=== PATIENT | male | born 1940 | race Caucasian/White ===

== ENCOUNTER 2017-01-21 13:20 | Emergency (ER) | payer OTHER ==
[~2017-01-21] VITALS: Ht 170.2 cm; Wt 55.0 kg
[~2017-01-21 13:20] MED LIST: ASPI81TA28 PEG; ATOR-54 PEG; CARV6.252 PEG; CNT PEG; DFLUDL100 PEG; DVN80 PEG; FSLL PEG; GLIP5TAB3 PO; LANS30TA3 PEG; NTRGSL/4 UT; NUTR-7 PO; OFLO0.3D4 OT; OXYC-57 PO; PANT40TA PO; POTA20TA16 PO; POTTAB2 PEG; SENN-65 PO; THM50 PEG; TICA1TAB PEG; VITBC PEG
[2017-01-21 13:28] VITALS: TEMP 36.9; Ht 170.2 cm; Wt 55.0 kg
--- NOTE | 2017-01-21 13:56 | EMERGENCY ROOM VISIT NOTE ---
History Report prepared by Scribe: Stefanie Tobar Under the Supervision of: Dr. Billy Steele D.O. First contact with patient: 13:44 Chief Complaint: FEEDING TUBE PROBLEM Stated Complaint: NEEDS TO HAVE FEEDING TUBE REMOVED-PROBLEMS History of Present Illness The patient is a 76 year old male who presents to the Emergency Room with complaints of pain around his feeding tube. He is accompanied by his and daughter. He reports he has been eating normally for the past 4 months and has developed pain around his feeding tube, which he rates as a 6/10. Touching the site worsens his discomfort. The feeding tube was placed here at [facility] by Dr. Mann after the patient had a short stay at [facility] in [place]. He denies any other complaints at today's visit. Source of History: patient, family Onset: DIETETIC AIDE Position: abdomen Symptom Intensity: 6/10 Timing: other (persistent) Modifying Factors (Worsening): other (palpation) Review of Systems See HPI for pertinent positives & negatives. A total of 10 systems reviewed and were otherwise negative. Past Medical & Surgical Medical Problems: (1) Abnormal EKG (2) CAD (coronary artery disease) (3) DM type 2 (diabetes mellitus, type 2) (4) Dyslipidemia (5) GERD (gastroesophageal reflux disease) (6) HTN (hypertension) (7) Multinodular thyroid (8) Nasopharyngeal mass (9) Possible GI bleed (10) Pulmonary nodules Surgical Problems: (1) H/O esophagogastroduodenoscopy (2) H/O Spinal surgery (3) S/P CABG x 4 (4) S/P triple vessel bypass (5) Stented coronary artery Family History Patient reports no known family medical history. Social History Smoking Status: Current Every Day Smoker Alcohol Use: none Drug Use: none Marital Status: Housing Status: lives with significant other Occupation Status: retired Current/Historical Medications Scheduled Aspirin (Aspirin Ec), 81 MG PEG QAM Atorvastatin (Lipitor), 20 MG PEG QAM Carvedilol (Coreg), 6.25 MG PEG BID Ciprofloxacin Tab (Cipro), 500 MG PO BID Clopidogrel (Plavix), 75 MG PO DAILY Diazepam (Valium), 5 MG PO HS Glipizide (Glucotrol), 5 MG PO BID Multivitamins/Minerals (Certavite/Antioxidants), 1 TAB PEG QAM Omeprazole (Prilosec), 10 MG PO HS Ranitidine (Zantac), 150 MG PO DAILY Scheduled PRN Nitroglycerin (Nitrostat), 0.4 MG UT PRN PRN for Chest Pain Oxycodone/Acetaminophen 5MG/325MG (Percocet 5MG/325MG), 1-2 TABLETS PO Q6H PRN for Pain Allergies Coded Allergies: Amoxicillin (Verified Adverse Reaction, Unknown, GI SYMPTOMS, 01/21/17) Clavulanic Acid (Verified Adverse Reaction, Unknown, GI SYMPTOMS, 01/21/17) Physical Exam Vital Signs Date Time Temp Pulse Resp B/P Pulse Ox O2 Delivery O2 Flow Rate FiO2 01/21/17 15:15 72 16 156/82 98 01/21/17 13:28 36.9 69 18 156/78 95 Room Air Physical Exam GENERAL: Patient is elderly and frail appearing. He does not appear to be in pain or distress. EYES: The conjunctivae are clear. The pupils are round and reactive. EARS, NOSE, MOUTH AND THROAT: The nose is without any evidence of any deformity. Mucous membranes are moist tongue is midline NECK: The neck is nontender and supple. RESPIRATORY: Normal respiratory effort is noted there is no evidence of wheezing rhonchi or rales CARDIOVASCULAR: Regular rate and rhythm noted there no murmurs rubs or gallops normal S1 normal S2 GASTROINTESTINAL: The abdomen is soft, non-distended. Feeding tube site is noted in RUQ. There is no erythema or drainage noted. MUSCULOSKELETAL/EXTREMITIES: There is no evidence of gross deformity full range of motion is noted in the hips and shoulders SKIN: There is no obvious evidence of any rash. There are no petechiae, pallor or cyanosis noted. NEUROLOGIC: Patient is awake alert and oriented x3 strength is symmetric patellar reflexes are 2+ bilaterally Medical Decision & Procedures ED Course 1350: The patient was evaluated in room B4. A complete history and physical examination were performed. 1356: I discussed the patients case with FRANCOISE Hammer Dextrine Mixer. They will follow up with the patient in the office. Medical Decision Nursing notes reviewed. The patient is a 76-year-old male who presented to the emergency department for an evaluation of his feeding tube. The patient had problems swallowing in the past. He no longer uses the feeding tube and his family members brought him to the emergency department today for possible removal of the feeding tube. I discussed the patient's case with the on-call fountain vending mechanic. They evaluated the patient in the emergency department for the feeding tube. They will follow the patient up an outpatient to evaluate whether or not the feeding tube to be removed. Certainly the patient does have some chronic underlying medical conditions and also is still very frail and cachectic appearing. It is possible he may need this feeding tube in the future but he is very sure that he wants removed as soon as possible. They were encouraged to return to the emergency apartment immediately if symptoms worsen or if need arises otherwise air encouraged to follow-up with the fountain vending mechanic as scheduled. Consults Time Called: [id number] Consulting Physician: FRANCOISE Hammer [facility] Dextrine Mixer Returned Call: [phone] I discussed the patients case with FRANCOISE Hammer Dextrine Mixer. They will follow up with the patient in the office. Impression Primary Impression: Complication of feeding tube Scribe Attestation The scribe's documentation has been prepared under my direction and personally reviewed by me in its entirety. I confirm that the note above accurately reflects all work, treatment, procedures, and medical decision making performed by me. Departure Information Dispostion Home / Self-Care Referrals Julius Marcelino (PCP) Patient Instructions Feeding Tube PEG, My [facility] Additional Instructions Call to schedule a follow-up appointment with the fountain vending mechanic.
[2017-01-21] MEDS ORDERED: ZNTT/150 PO (14:00)
[2017-01-21] MEDS ORDERED: CIPR1TAB11 PO (14:00)
[2017-01-21] MEDS ORDERED: OMEP10CA4 PO (14:00)
[2017-01-21] MEDS ORDERED: DIAZ-165 PO (14:00)
[2017-01-21] MEDS ORDERED: CLOP1TAB15 PO (14:00)
[2017-01-21 15:15] VITALS: BP 156/82; PULSE 72; O2SAT 98
== END 2017-01-21 16:01 | disposition home or self-care (01) ==
LOC: C.EDB 13:23
DX: K94.29 Other complications of gastrostomy (principal); I10 Essential (primary) hypertension; E11.9 Type 2 diabetes mellitus without complications; F17.210 Nicotine dependence, cigarettes, uncomplicated; Z95.1 Presence of aortocoronary bypass graft; I25.10 Atherosclerotic heart disease of native coronary artery without angina pectoris; Z79.899 Other long term (current) drug therapy

== ENCOUNTER 2019-09-01 17:33 | Inpatient (IN) ==
[~2019-09-01 17:33] MED LIST changes: -ASPI81TA28 PEG; -ATOR-54 PEG; -CARV6.252 PEG; -CNT PEG; -DFLUDL100 PEG; -DVN80 PEG; -FSLL PEG; -GLIP5TAB3 PO; -LANS30TA3 PEG; -NTRGSL/4 UT; -NUTR-7 PO; -OFLO0.3D4 OT; -OXYC-57 PO; -PANT40TA PO; -POTA20TA16 PO; -POTTAB2 PEG; -SENN-65 PO; +SODIUM CHLORIDE 0.9% 1000ML 1,000 ML IV SCH; -THM50 PEG; -TICA1TAB PEG; -VITBC PEG
[2019-09-01] MEDS ORDERED: OPTIRAY 320 125ml IV PRN (17:36)
[2019-09-01 18:06] LABS: Basophils # (auto) 0.03 K/uL (0-0.2); Basophils % (auto) 0.5 %; Eosinophils # (auto) 0.31 K/uL (0-0.5); Eosinophils % (auto) 4.9 %; Hematocrit (blood only) 38.2 % (42-52); Hemoglobin 12.8 g/dL (14.0-18.0); Immature Granulocytes # (auto) 0.01 K/uL (0.00-0.02); Immature Granulocytes % (auto) 0.2 %; Lymphocytes # (auto) 2.11 K/uL (1.2-3.4); Lymphocytes % (auto) 33.6 %; Mean Corpuscular Hgb Conc 33.5 g/dL (32-36); Mean Corpuscular Volume 89.5 fL (80-100); Mean Platelet Volume 9.6 fL (7.4-10.4); Monocytes # (auto) 0.55 K/uL (0.11-0.59); Monocytes % (auto) 8.8 %; Neutrophils # (auto) 3.27 K/uL (1.4-6.5); Platelet Count 230 K/uL (130-400); RDW Coefficient of Variation 13.7 % (11.5-14.5); RDW Standard Deviation 44.9 fL (36.4-46.3); Red Blood Count 4.27 M/uL (4.7-6.1); White Blood Count 6.28 K/uL (4.8-10.8)
[2019-09-01 18:10] LABS: Alanine Aminotransferase 22 U/L (12-78); Albumin Level 3.5 gm/dl (3.4-5.0); Aspartate Aminotransferase 15 U/L (15-37); BUN Creatinine Ratio 15.4 (10-20); Blood Urea Nitrogen 12 mg/dl (7-18); Calcium 9.3 mg/dl (8.5-10.1); Carbon Dioxide 27 mmol/L (21-32); Chloride 102 mmol/L (98-107); Est GFR (African American) 99.2; Est GFR (Non-African American) 85.6; Glucose 160 mg/dl (70-99); Magnesium 1.9 mg/dl (1.8-2.4); Sodium 136 mmol/L (136-145)
--- NOTE | 2019-09-01 18:11 | CT Scan Report ---
CT OF THE HEAD WITHOUT CONTRAST CLINICAL HISTORY: Stroke evaluation. COMPARISON STUDY: Head CT April 01, 2016. MRI of the brain May 06, 2016. TECHNIQUE: Helical axial images of the head were obtained without IV contrast. Automated exposure con trol was utilized for the study. A dose lowering technique was utilized adhering to the principles o f ALARA. FINDINGS: No acute intracranial hemorrhage, midline shift or mass effect is present. The ventricular system is unremarkable. The basilar cisterns are patent. No extra-axial collections are present. Ther e are no findings to suggest acute dural sinus thrombosis or acute territorial infarct. No significan t calvarial abnormalities are present. There is mild ethmoid sinus mucosal thickening. Small old infa rct within the right frontal lobe is noted. White matter hypodensity suggests small vessel disease. IMPRESSION: 1. No acute intracranial findings. 2. Small old right frontal lobe infarct and moderate small vessel disease. Electronically signed by: Constantine Reese M.D. 09/01/2019 6:10 PM
[2019-09-01 18:15] LABS: Albumin Globulin Ratio 1.2 (0.9-2); Alkaline Phosphatase 71 U/L (45-117); Bilirubin,Total 0.4 mg/dl (0.2-1); Total Protein 6.5 gm/dl (6.4-8.2); Troponin I < 0.015 ng/ml (0-0.045)
--- NOTE | 2019-09-01 18:17 | CT Scan Report ---
HEAD & NECK CTA HISTORY: weakness TECHNIQUE: Multiaxial CT images of the head were performed following the intravenous administration o f contrast to evaluate the major cerebral vessels. Multiaxial CT images of the neck were also perform ed following the intravenous administration of contrast to evaluate the major cervical vessels. Maxim um intensity projection images were also obtained. A dose lowering technique was utilized adhering to the principles of ALARA. COMPARISON: None. FINDINGS: There is no mass, hematoma, midline shift, or acute infarct. Mild multifocal narrowing within the trisha ateral carotid siphons due to the calcified plaque. The distal vertebral arteries and basilar artery are patent. No significant stenosis, occlusion, aneurysm within the bilateral ACAs, MCAs, diesel powerplant mechanic helper. High-grade stenosis of approximately 90% within the proximal left subclavian artery. This likely acc ounts for the diminished perfusion throughout the left vertebral artery. There is moderate to severe stenosis at the origin of the left vertebral artery. Mild multifocal narrowing within the left verteb ral artery due to the calcified plaque. Mild focal narrowing within the right vertebral artery at the C7 level due to the atherosclerotic plaque. Mild narrowing of approximately 20% at the origin of the innominate artery. There is mild multifocal narrowing within the bilateral mid subclavian arteries. Mild narrowing within the bilateral mid to distal common carotid arteries due to the calcified and no ncalcified atherosclerotic plaque. Moderate left and mild right carotid bifurcation calcification. No significant stenosis or occlusion within the right internal carotid artery. There is mild stenosis o f approximately 40% at the proximal left internal carotid artery. Biapical patchy densities favor sca rring. A 3 mm subpleural nodule within the right lower lobe on image 1. No pneumothorax. 4 mm nodule within the left lung apex on image 74. There is also a 3 mm nodule within the left lung apex on image 74. Multiple subcentimeter thyroid nodules. There is also a dominant 1.3 cm nodule within the left t hyroid lobe. Poststernotomy changes. Degenerative changes within the cervical spine. IMPRESSION: 1. No significant stenosis, occlusion, or aneurysm within the [place]. 2. Overall, diminished perfusion within the left vertebral artery in comparison to the right. This is likely due to the high-grade stenosis at the proximal left subclavian artery as well as at the moder ate to severe stenosis at the origin of the left vertebral artery. 3. Mild multifocal narrowing within the carotid and vertebral arteries as described above. No arteria l occlusion or dissection identified. Electronically signed by: Hietsh Nathan M.D. 09/01/2019 6:15 PM
--- NOTE | 2019-09-01 18:29 | XRay Report ---
XR chest 1V portable CLINICAL HISTORY: weakness COMPARISON STUDY: Chest And chest CT April 01, 2016. FINDINGS: Lung volumes are mildly diminished. There are median sternotomy wires and mediastinal surgi bhaskar clips. There is borderline cardiomegaly. There is no evidence for pulmonary edema. No pneumothora x or pleural effusion is noted. Minimal left basilar opacity is present. IMPRESSION: Left basilar opacity which favors atelectasis. An infectious process is considered less likely but could appear similar. Electronically signed by: Constantine Reese M.D. 09/01/2019 6:27 PM
[2019-09-01 18:44] LABS: INR 1.1 (0.9-1.1); Partial Thromboplastin Ratio 1.4; Partial Thromboplastin Time 37.4 Seconds (21.0-31.0); Prothrombin Time 10.9 Seconds (9.0-12.0)
--- NOTE | 2019-09-01 19:43 | History & Physical Report ---
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 Pt with hx CVA in past with left sided weakness however reports resolution. 2 days ago started with slurred speech. Yesterday with left arm weakness, Today increased left arm weakness and numbness with associated left leg weakness. Also with dizziness and blurry vision. Reports chronic SHAH and denies increased SHAH. In ER P: 75, R: 18, BP: 179/103 down to 139/73, 96% on RA CT HEAD: No acute intracranial findings. Small old right frontal lobe infarct and moderate small vessel disease. CTA HEAD & CTA NECK: 1. No significant stenosis, occlusion, or aneurysm within the [place]. 2. Overall, diminished perfusion within the left vertebral artery in comparison to the right. This is likely due to the high-grade stenosis at the proximal left subclavian artery as well as at the moderate to severe stenosis at the origin of the left vertebral artery. 3. Mild multifocal narrowing within the carotid and vertebral arteries as described above. No arterial occlusion or dissection identified. DDX: Stroke, TIA -Tele to monitor for arrhythmias -Lipids, A1C, TSH in am -MRI brain -Echo with bubble study -Aspiration precautions -Speech eval -PT/OT consult -Continue statin, aspirin -Will add Plavix -Neurology consult -May need to consider vascular consult (2) CAD (coronary artery disease): S/P CABG, Stents No CP -Continue aspirin, carvedilol, statin (3) HTN (hypertension): Monitor -Continue carvedilol (4) DM type 2 (diabetes mellitus, type 2): Not on medications currently -A1c in am -Novolog correction scale -Monitor BSGs (5) Dysphagia: H/O Chronic dysphagia. On pureed diet -Aspiration precautions -Speech eval (6) Dyslipidemia: -Continue statin (7) GERD (gastroesophageal reflux disease): -Continue PPI, H2 edwin (8) Multinodular thyroid: -Obtain TSH (9) Tobacco use: -Smoking cessation encouraged DVT Prophylaxis -Lovenox SQ Full Code as per discussion with pt, however reports would not want prolonged life support if poor prognosis Follows with Iman Carrasco PA-C with [facility] in [place] for routine care Pt was seen and care coordinated with Dr Rahman. See addendum. 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 Pt with hx CVA in past with left sided weakness however reports that resolved shortly after stroke. Reports 2 days ago started with slurring speech however noticed worsening slurred speech yesterday. States yesterday with some left arm weakness however this morning with increased left sided weakness. Reports left arm and hand weakness and numbness sensation. Had difficulty walking today and thinks that had some left leg weakness as well. C/O dizziness today described as spinning and feeling off balance. Noted blurry vision that he reports has improved since ER arrival. Pt with chronic SHAH, worse at night. Denies any increased SHAH. Reports chronic nasal/sinus congestion and uses Flonase and Claritin. Denies any increased nasal congestion or facial pain, fever/chills, cough. reports chronic dysphagia and eats pureed diet. Denies recent choking. Reports chronic nocturia. Denies falls, diaphoresis, N/V/D/C, syncope, neck pain, CP, SOB, orthopnea, palpitations, cough, sore throat, otalgia, rhinorrhea, abdominal pain, extremity edema, rashes, dysuria, hematuria. Allergies Allergy/AdvReac Type Severity Reaction Status Date / Time amoxicillin AdvReac Unknown GI SYMPTOMS Verified 09/01/19 19:10 clavulanic acid AdvReac Unknown GI SYMPTOMS Verified 09/01/19 19:10 Home Medications Home Medications Medication Instructions Recorded Confirmed Type aspirin [Aspir-81] 81 mg PO DAILY 09/01/19 09/01/19 History carvedilol [Coreg] 3.125 mg PO BID 09/01/19 09/01/19 History cefuroxime axetil 500 mg PO BID 09/01/19 09/01/19 History famotidine [Pepcid] 40 mg PO DAILY 09/01/19 09/01/19 History fluticasone propionate 2 spray INTRANASAL DAILY 09/01/19 09/01/19 History loratadine [Claritin] 10 mg PO DAILY 09/01/19 09/01/19 History nitroglycerin 0.4 mg SUBLINGUAL UD PRN 09/01/19 09/01/19 History omeprazole 20 mg PO DAILY 09/01/19 09/01/19 History oxycodone-acetaminophen [Percocet] 1 tab PO Q6 PRN 09/01/19 09/01/19 History rosuvastatin [Crestor] 20 mg PO DAILY 09/01/19 09/01/19 History Past Med/Surg History Medical History CAD (coronary artery disease) (Chronic) "s/p CABG x 4 and stents x 2 " CVA (cerebral vascular accident) (Acute) DM type 2 (diabetes mellitus, type 2) (Chronic) Dyslipidemia (Chronic) Dysphagia Chronic H/O Peg tube in past. 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; h/o recurrence in 2017 Pulmonary nodules (Inactive) "bilateral pulmonary nodules noted on CT 04/01/16" Tobacco use Surgical History S/P CABG x 4 (Resolved) "2013" Family History Other Cancer Diabetes Heart disease Hypertension Social History (Updated 09/01/19 @ 19:58 by Sarahi Reynoso PA-C) Feels Safe at Home: Yes Smoking Status: Current every day smoker Cigarettes Per Day: Smokes 2-3 cigars daily ; Hx Alcohol Use: No Hx Substance Use: No Review of Systems Review of Systems: All systems reviewed & are unremarkable except as noted in HPI & below Physical Exam Physical Exam: General: no acute distress, chronic ill appearing, moderately developed moderately nourished, dishelved Head: normocephalic, atraumatic Eyes: PERRL, EOM's intact, conjunctiva non-injected, anicteric ENT: normal inspection external ears, nose, mucous membranes moist Neck: supple, trachea midline Lungs: clear, no respiratory distress, no wheezing/rhonchi/rales CV: RRR, systolic murmur, no pretibial edema Abd: normal BS, soft, non-tender Ext: no cyanosis, no calf tenderness Neuro: A&O x 3, normal affect, Visual cooper appear intact, No nystagmus, Facial sensation is diminished to left side of face, +left facial droop, bilateral eyebrow raise intact, hearing grossly intact, + slurred speech, shoulder shrug intact, Tongue is midline, normal movement, no fasciculations, left arm 4/5 strength, left leg 4/5 strength, decreased left polytechnic teacher strength from right, right arm strength 5/5, right leg 5/5 strength. sensation to bilateral arms and legs intact Skin: warm, dry Results & Data Vital Signs (Past 12 Hours) Vital Signs Pulse Pulse Resp BP BP Pulse Ox 09/01/19 19:28 65 20 164/64 H 96 09/01/19 18:41 68 19 155/75 H 96 09/01/19 18:24 68 139/73 95 09/01/19 17:58 75 18 179/103 H 96 09/01/19 17:49 70 179/103 H 95 Laboratory Results Short CBC 09/01/19 Range/Units 17:32 WBC 6.28 (4.8-10.8) K/uL Hgb 12.8 L (14.0-18.0) g/dL Hct 38.2 L (42-52) % Plt Count 230 (130-400) K/uL [facility] 09/01/19 17:32 Sodium 136 Potassium 4.0 Chloride 102 Carbon Dioxide 27 BUN 12 Creatinine 0.76 Glucose 160 H Calcium 9.3 Cardiac Enzymes 09/01/19 Range/Units 17:32 Troponin I < 0.015 (0-0.045) ng/ml Liver Function 09/01/19 Range/Units 17:32 Total Bilirubin 0.4 (0.2-1) mg/dl AST 15 (15-37) U/L ALT 22 (12-78) U/L Alkaline Phosphatase 71 (45-117) U/L Albumin 3.5 (3.4-5.0) gm/dl Diagnostic Findings CT HEAD: IMPRESSION: 1. No acute intracranial findings. 2. Small old right frontal lobe infarct and moderate small vessel disease. CXR: IMPRESSION: Left basilar opacity which favors atelectasis. An infectious process is considered less likely but could appear similar. CTA HEAD & CTA NECK: IMPRESSION: 1. No significant stenosis, occlusion, or aneurysm within the [place]. 2. Overall, diminished perfusion within the left vertebral artery in comparison to the right. This is likely due to the high-grade stenosis at the proximal left subclavian artery as well as at the moderate to severe stenosis at the origin of the left vertebral artery. 3. Mild multifocal narrowing within the carotid and vertebral arteries as described above. No arterial occlusion or dissection identified. Code Status & VTE Plan VTE Prophylaxis Plan VTE Prophylaxis will be ordered: Yes Supervising Physician Co-Signing Physician Notes Patient is an 79-year-old male with history of coronary artery disease S/P CABG, hypertension, CVA, tobacco use disorder and other problems presents with history of slurred speech, facial droop, left sided weakness and numbness since yesterday. Patient has chronic left-sided headache. Reports associated dizziness, transient blurry vision. Prior CVA affected on the left side as well as per the family. He denies any swallowing difficulty. Currently blurry vision improved. Patient is on aspirin 81 mg daily at home. Please review HPI for complete details of presentation. CT head showed no acute CVA. Head and neck CTA showed findings suggestive of high-grade stenosis of the proximal left subclavian artery, moderate to severe stenosis at the origin of the left vertebral artery. Patient was thought to be not a candidate for TPA as per the recommendations from [place] [facility]. On exam patient is moderately built and nourished, chronic ill-appearing, no apparent distress, normocephalic atraumatic, EOMI, lungs are clear to auscultation, S1-S2,+ murmur, abdomen soft nontender, no pedal edema, left facial droop, decreased left-sided weakness 4/5 both upper and lower extremities. Patient is admitted for management of strokelike symptoms. Symptomatic vertebral artery stenosis. Plan to continue aspirin, statin. Will add Plavix for maximal medical therapy. Advised to quit smoking. Check echo, speech eval, TSH, A1c, lipid panel. Neurologist co nsulted. Consider vascular surgery evaluation. Check MRI brain. Allow permissive hypertension in setting of possible acute stroke. I personally reviewed the record. Patient is interviewed and examined at bedside. Patient's care is coordinated with Sarahi Reynoso PA-C. Please refer to the documentation above for details of patient's presentation and for discussion of other issues.
--- NOTE | 2019-09-01 19:53 | Emergency Department Note ---
Entered by Guzman Egan acting as a scribe for Billy Steele DO History of Present Illness General Chief complaint: Stroke Alert Stated complaint: LEFT SIDE WEAKNESS Source: family History of Present Illness Onset (ago): hour(s) (48) Location: face Pain Consistency: + intermittent Quality: + other (droop and slurred speech) Associated symptoms: no chest pain and no shortness of breath The patient is an 79 y/o male who presents to the ED w/ CC of intermittent slurred speech and facial droop beginning 48 hours ago. The patient's family states the patient has been having intermittent weakness and slurred speech for the past 48 hours. They report the patient had an appointment at his PCP today and was told he had a mini-stroke. The family notes the patient's symptoms resolved this morning and then returned this afternoon. They state his symptoms were more severe and have persisted since their new onset. The family reports the patient has had a constant facial droop with slurred speech. They note a history of a TIA, esophageal bleeding, and CABGx3. The patient denies chest pain and shortness of breath. Home Medications Home Medications Medication Instructions Recorded Confirmed Type aspirin [Aspir-81] 81 mg PO DAILY 09/01/19 09/01/19 History carvedilol [Coreg] 3.125 mg PO BID 09/01/19 09/01/19 History cefuroxime axetil 500 mg PO BID 09/01/19 09/01/19 History famotidine [Pepcid] 40 mg PO DAILY 09/01/19 09/01/19 History fluticasone propionate 2 spray INTRANASAL DAILY 09/01/19 09/01/19 History loratadine [Claritin] 10 mg PO DAILY 09/01/19 09/01/19 History nitroglycerin 0.4 mg SUBLINGUAL UD PRN 09/01/19 09/01/19 History omeprazole 20 mg PO DAILY 09/01/19 09/01/19 History oxycodone-acetaminophen [Percocet] 1 tab PO Q6 PRN 09/01/19 09/01/19 History rosuvastatin [Crestor] 20 mg PO DAILY 09/01/19 09/01/19 History Allergies Allergy/AdvReac Type Severity Reaction Status Date / Time amoxicillin AdvReac Unknown GI SYMPTOMS Verified 09/01/19 19:10 clavulanic acid AdvReac Unknown GI SYMPTOMS Verified 09/01/19 19:10 Past Med/Surg History Family History Other Cancer Diabetes Heart disease Hypertension Social History (Updated 09/01/19 @ 19:58 by Sarahi Reynoso PA-C) Preferred Language: Malian Communication Ability: Effective Dispatcher Motor Vehicle Required: No Beliefs That Will Affect Care: None Current Living Situation: Spouse Feels Safe at Home: Yes Smoking Status: Current every day smoker Tobacco Type: cigars ; Cigarettes Per Day: 3 ; Do You Dip or Chew Tobacco: No ; Tobacco Cessation Education Requested by Patient: No Hx Alcohol Use: No Hx Substance Use: No Review of Systems See HPI for pertinent positives & negatives. and A total of 10 systems reviewed and were otherwise negative Physical Exam Vital Signs Vital Signs - 24 hr 09/01/19 17:49 09/01/19 17:58 09/01/19 18:24 Pulse Rate 70 75 68 Pulse Rate [Right Finger] Pulse Rate from SpO2 Sensor 70 69 Pulse Rhythm Regular Pulse Rhythm [Right Finger] Pulse Strength Normal Pulse Strength [Right Finger] Respiratory Rate 18 Respiratory Effort / Characteristics Non-Labored Respiratory Depth Normal Respiratory Pattern Regular Blood Pressure 179/103 H 179/103 H 139/73 Blood Pressure [Left Arm] Blood Pressure Mean 139 128 95 Blood Pressure Mean [Left Arm] Blood Pressure Position Lying Blood Pressure Position [Left Arm] Pulse Oximetry 95 96 95 Oxygen Delivery Method Room Air Room Air Sepsis Recent Fever Within 48 Hours No Sepsis Action Taken by Nursing No Action Required 09/01/19 18:30 09/01/19 18:40 09/01/19 18:41 Pulse Rate 67 66 Pulse Rate [Right Finger] 68 Pulse Rate from SpO2 Sensor 66 66 Pulse Rhythm Pulse Rhythm [Right Finger] Pulse Strength Pulse Strength [Right Finger] Respiratory Rate 19 Respiratory Effort / Characteristics Respiratory Depth Respiratory Pattern Blood Pressure 139/73 155/75 H Blood Pressure [Left Arm] 155/75 H Blood Pressure Mean 86 105 Blood Pressure Mean [Left Arm] 101 Blood Pressure Position Blood Pressure Position [Left Arm] Pulse Oximetry 97 95 96 Oxygen Delivery Method Room Air Sepsis Recent Fever Within 48 Hours Sepsis Action Taken by Nursing 09/01/19 18:50 09/01/19 19:00 09/01/19 19:11 Pulse Rate 64 69 67 Pulse Rate [Right Finger] Pulse Rate from SpO2 Sensor 64 69 67 Pulse Rhythm Pulse Rhythm [Right Finger] Pulse Strength Pulse Strength [Right Finger] Respiratory Rate Respiratory Effort / Characteristics Respiratory Depth Respiratory Pattern Blood Pressure 129/68 140/75 164/101 H Blood Pressure [Left Arm] Blood Pressure Mean 91 105 130 Blood Pressure Mean [Left Arm] Blood Pressure Position Blood Pressure Position [Left Arm] Pulse Oximetry 96 95 97 Oxygen Delivery Method Sepsis Recent Fever Within 48 Hours Sepsis Action Taken by Nursing 09/01/19 19:20 09/01/19 19:28 09/01/19 19:33 Pulse Rate 66 68 Pulse Rate [Right Finger] 65 Pulse Rate from SpO2 Sensor 68 68 Pulse Rhythm Pulse Rhythm [Right Finger] Regular Pulse Strength Pulse Strength [Right Finger] Normal Respiratory Rate 20 20 Respiratory Effort / Characteristics Non-Labored Spontaneous Respiratory Depth Normal Respiratory Pattern Regular Blood Pressure 138/81 155/76 H Blood Pressure [Left Arm] 164/64 H Blood Pressure Mean 89 102 Blood Pressure Mean [Left Arm] 97 Blood Pressure Position Blood Pressure Position [Left Arm] Sitting Pulse Oximetry 94 96 96 Oxygen Delivery Method Room Air Sepsis Recent Fever Within 48 Hours Sepsis Action Taken by Nursing GENERAL: The patient is awake and alert. He is somewhat anxious appearing but overall comfortable. EYES: The conjunctivae are clear. The pupils are round and reactive. EARS, NOSE, MOUTH AND THROAT: The nose is without any evidence of any deformity. Mucous membranes are moist. Tongue is midline. NECK: The neck is nontender and supple. RESPIRATORY: Normal respiratory effort is noted there is no evidence of wheezing rhonchi or rales CARDIOVASCULAR: Regular rate and rhythm noted there no murmurs rubs or gallops normal S1 normal S2. GASTROINTESTINAL: The abdomen is soft. Abdomen is nontender. MUSCULOSKELETAL/EXTREMITIES: There is no evidence of gross deformity full range of motion is noted in the hips and shoulders. SKIN: There is no obvious evidence of any rash. There are no petechiae, pallor or cyanosis noted. NEUROLOGIC: Patient is oriented to person place and situation. Speech is somewhat slurred. There is a left facial droop which involves the corner of the mouth. The forehead appears to be spared. Biometrics Consultant strength is diminished in the left hand compared to the right. Patient is able to hold each leg off the bed w ith some asymmetry with the left leg weaker than the right. Course Course 1734: Past medical records reviewed. The patient was evaluated in room B01. A complete history and physical exam was performed. 1809: I discussed the patient's case with Dr. Woods, [facility]. Due to the length of the patient's symptoms, t-PA was not warranted. It was recommend that the patient have a hospitalist evaluation because transfer was not warranted. 1813: Upon reevaluation, the patient is resting comfortably. I discussed laboratory and radiographic results with the family. They verbalized agreement of the treatment plan. The patient will be evaluated for further management and care. 1842: I discussed the patient's case with EMILIE Castillo Hospitalist - Attending Dr. Rahman. The patient will be evaluated for further management and care. Administered Medications Aspirin (Ecotrin Ectab) 81 mg PO DAILY KTAHIA Stop: 10/02/19 08:59 Last Admin: 09/02/19 13:24 Dose: 81 mg Documented by: [id number] Carvedilol (Coreg) 3.125 mg PO BID KATHIA Stop: 10/01/19 21:04 Last Admin: 09/02/19 09:00 Dose: Not Given Documented by: [id number] Admin: 09/01/19 21:59 Dose: 3.125 mg Documented by: [id number] Clopidogrel Bisulfate (Plavix) 75 mg PO QAM KATHIA Stop: 10/01/19 21:04 Last Admin: 09/02/19 13:23 Dose: 75 mg Documented by: [id number] Admin: 09/01/19 21:58 Dose: 75 mg Documented by: [id number] Enoxaparin Sodium (Lovenox) 40 mg SQ Q24H KATHIA Stop: 10/01/19 21:29 Last Admin: 09/01/19 21:58 Dose: 40 mg Documented by: [id number] Famotidine (Pepcid) 40 mg PO DAILY KATHIA Stop: 10/02/19 08:59 Last Admin: 09/02/19 13:24 Dose: 40 mg Documented by: [id number] Fluticasone Propionate (Flonase) 2 sprays RODOLFO DAILY KATHIA Stop: 10/02/19 08:59 Last Admin: 09/02/19 09:10 Dose: 2 sprays Documented by: [id number] Insulin Aspart (Novolog Flexpen) 0 units SC ACHS KATHAI Stop: 10/01/19 21:04 Last Admin: 09/02/19 12:45 Dose: Not Given Documented by: [id number] Cosigned by: [id number] Admin: 09/02/19 09:09 Dose: Not Given Documented by: [id number] Cosigned by: [id number] Admin: 09/01/19 22:16 Dose: Not Given Documented by: [id number] Cosigned by: [id number] Loratadine (Claritin) 10 mg PO DAILY KATHIA Stop: 10/02/19 08:59 Last Admin: 09/02/19 13:24 Dose: 10 mg Documented by: [id number] Pantoprazole Sodium (Protonix) 40 mg PO DAILY KATHIA Stop: 10/02/19 08:59 Last Admin: 09/02/19 13:24 Dose: 40 mg Documented by: [id number] Rosuvastatin Calcium (Crestor) 20 mg PO DAILY KATHIA Stop: 10/02/19 08:59 Last Admin: 09/02/19 13:24 Dose: 20 mg Documented by: [id number] Discontinued Medications Sodium Chloride (Nss 1000ml) 1,000 mls @ 50 mls/hr IV .Q20H KATHIA Stop: 10/01/19 17:29 Last Infusion: 09/01/19 22:17 Dose: 0 mls/hr Documented by: [id number] Admin: 09/01/19 17:53 Dose: 50 mls/hr Documented by: [id number] Lactated Ringer's (Lr) 1,000 mls @ 250 mls/hr IV .Q4H KATHIA Stop: 09/02/19 11:44 Last Infusion: 09/02/19 11:59 Dose: 0 mls/hr Documented by: [id number] Admin: 09/02/19 07:59 Dose: 250 mls/hr Documented by: [id number] Ioversol (Optiray 320 125ml) 119 ml IV ONCE PRN PRN Reason: Interaction Checking Stop: 09/05/19 17:35 Last Admin: 09/01/19 17:36 Dose: 1 ml Documented by: [id number] Medical Decision Making Differential Diagnosis Differential Diagnosis includes but is not limited to dehydration, stroke, anemia, hypoglycemia, hyponatremia, hypernatremia, urinary tract infection, pneumonia, bronchitis, sepsis, gastroenteritis, additional abdominal pathology, metabolic abnormalities and infections. Medical Records Attestation: I reviewed the patient's medical records. Home Medications Current Medication List: was personally reviewed by me Laboratory Data Attestation: I reviewed the patient's lab results. Result diagrams: 09/02/19 06:27 09/02/19 06:27 Lab Results 09/01/19 09/01/19 09/01/19 Range/Units 17:32 17:32 17:32 WBC 6.28 (4.8-10.8) K/uL RBC 4.27 L (4.7-6.1) M/uL Hgb 12.8 L (14.0-18.0) g/dL Hct 38.2 L (42-52) % MCV 89.5 (80-100) fL MCH 30.0 (25-34) pg MCHC 33.5 (32-36) g/dL RDW Std Deviation 44.9 (36.4-46.3) fL RDW Coeff of Iliana 13.7 (11.5-14.5) % Plt Count 230 (130-400) K/uL MPV 9.6 (7.4-10.4) fL Immature Gran % (Auto) 0.2 % Neut % (Auto) 52.0 % Lymph % (Auto) 33.6 % Harrison % (Auto) 8.8 % Eos % (Auto) 4.9 % Baso % (Auto) 0.5 % Immature Gran # (Auto) 0.01 (0.00-0.02) K/uL Neut # (Auto) 3.27 (1.4-6.5) K/uL Lymph # (Auto) 2.11 (1.2-3.4) K/uL Harrison # (Auto) 0.55 (0.11-0.59) K/uL Eos # (Auto) 0.31 (0-0.5) K/uL Baso # (Auto) 0.03 (0-0.2) K/uL PT 10.9 (9.0-12.0) Seconds INR 1.1 (0.9-1.1) APTT 37.4 H (21.0-31.0) Seconds PTT Ratio 1.4 Sodium 136 (136-145) mmol/L Potassium 4.0 (3.5-5.1) mmol/L Chloride 102 (98-107) mmol/L Carbon Dioxide 27 (21-32) mmol/L Anion Gap 7.0 (3-11) BUN 12 (7-18) mg/dl Creatinine 0.76 (0.6-1.4) mg/dl Est Cr Clr Drug Dosing Not Reportable Est GFR ( Amer) 99.2 Est GFR (Non-Af Amer) 85.6 BUN/Creatinine Ratio 15.4 (10-20) Glucose 160 H (70-99) mg/dl POC Glucose (70-99) Calcium 9.3 (8.5-10.1) mg/dl Magnesium 1.9 (1.8-2.4) mg/dl Total Bilirubin 0.4 (0.2-1) mg/dl AST 15 (15-37) U/L ALT 22 (12-78) U/L Alkaline Phosphatase 71 (45-117) U/L Troponin I < 0.015 (0-0.045) ng/ml Total Protein 6.5 (6.4-8.2) gm/dl Albumin 3.5 (3.4-5.0) gm/dl Globulin 3.0 (2.5-4.0) gm/dl Albumin/Globulin Ratio 1.2 (0.9-2) Blood Type Antibody Screen 09/01/19 09/01/19 Range/Units 17:56 18:06 WBC (4.8-10.8) K/uL RBC (4.7-6.1) M/uL Hgb (14.0-18.0) g/dL Hct (42-52) % MCV (80-100) fL MCH (25-34) pg MCHC (32-36) g/dL RDW Std Deviation (36.4-46.3) fL RDW Coeff of Iliana (11.5-14.5) % Plt Count (130-400) K/uL MPV (7.4-10.4) fL Immature Gran % (Auto) % Neut % (Auto) % Lymph % (Auto) % Harrison % (Auto) % Eos % (Auto) % Baso % (Auto) % Immature Gran # (Auto) (0.00-0.02) K/uL Neut # (Auto) (1.4-6.5) K/uL Lymph # (Auto) (1.2-3.4) K/uL Harrison # (Auto) (0.11-0.59) K/uL Eos # (Auto) (0-0.5) K/uL Baso # (Auto) (0-0.2) K/uL PT (9.0-12.0) Seconds INR (0.9-1.1) APTT (21.0-31.0) Seconds PTT Ratio Sodium (136-145) mmol/L Potassium (3.5-5.1) mmol/L Chloride (98-107) mmol/L Carbon Dioxide (21-32) mmol/L Anion Gap (3-11) BUN (7-18) mg/dl Creatinine (0.6-1.4) mg/dl Est Cr Clr Drug Dosing Est GFR ( Amer) Est GFR (Non-Af Amer) BUN/Creatinine Ratio (10-20) Glucose (70-99) mg/dl POC Glucose 154 H (70-99) Calcium (8.5-10.1) mg/dl Magnesium (1.8-2.4) mg/dl Total Bilirubin (0.2-1) mg/dl AST (15-37) U/L ALT (12-78) U/L Alkaline Phosphatase (45-117) U/L Troponin I (0-0.045) ng/ml Total Protein (6.4-8.2) gm/dl Albumin (3.4-5.0) gm/dl Globulin (2.5-4.0) gm/dl Albumin/Globulin Ratio (0.9-2) Blood Type O Positive Antibody Screen NEGATIVE Imaging Data Radiologist's Impression: Radiology results as stated below per my review and the radiologist's interpretation: XR chest 1V portable CLINICAL HISTORY: weakness COMPARISON STUDY: Chest And chest CT April 01, 2016. FINDINGS: Lung volumes are mildly diminished. There are median sternotomy wires and mediastinal surgical clips. There is borderline cardiomegaly. There is no evidence for pulmonary edema. No pneumothorax or pleural effusion is noted. Minimal left basilar opacity is present. IMPRESSION: Left basilar opacity which favors atelectasis. An infectious proces s is considered less likely but could appear similar. Electronically signed by: Constantine Reese M.D. 09/01/2019 6:[address] OF THE HEAD WITHOUT CONTRAST CLINICAL HISTORY: Stroke evaluation. COMPARISON STUDY: Head CT April 01, 2016. MRI of the brain May 06, 2016. TECHNIQUE: Helical axial images of the head were obtained without IV contrast. Automated exposure control was utilized for the study. A dose lowering technique was utilized adhering to the principles of ALARA. FINDINGS: No acute intracranial hemorrhage, midline shift or mass effect is present. The ventricular system is unremarkable. The basilar cisterns are patent. No extra-axial collections are present. There are no findings to suggest acute dural sinus thrombosis or acute territorial infarct. No significant calvarial abnormalities are present. There is mild ethmoid sinus mucosal thickening. Small old infarct within the right frontal lobe is noted. White matter hypodensity suggests small vessel disease. IMPRESSION: 1. No acute intracranial findings. 2. Small old right frontal lobe infarct and moderate small vessel disease. Electronically signed by: Constantine Reese M.D. 09/01/2019 6:10 PM HEAD & NECK CTA HISTORY: weakness TECHNIQUE: Multiaxial CT images of the head were performed following the intravenous administration of contrast to evaluate the major cerebral vessels. Multiaxial CT images of the neck were also performed following the intravenous administration of contrast to evaluate the major cervical vessels. Maximum intensity projection images were also obtained. A dose lowering technique was utilized adhering to the principles of ALARA. COMPARISON: None. FINDINGS: There is no mass, hematoma, midline shift, or acute infarct. Mild multifocal narrowing within the bilateral carotid siphons due to the calcified plaque. The distal vertebral arteries and basilar artery are patent. No significant stenosis, occlusion, aneurysm within the bilateral ACAs, MCAs, penal officer. High-grade stenosis of approximately 90% within the proximal left subclavian artery. This likely accounts for the diminished perfusion throughout the left vertebral artery. There is moderate to severe stenosis at the origin of the left vertebral artery. Mild multifocal narrowing within the left vertebral artery due to the calcified plaque. Mild focal narrowing within the right vertebral artery at the C7 level due to the atherosclerotic plaque. Mild narrowing of approximately 20% at the origin of the innominate artery. There is mild multifocal narrowing within the bilateral mid subclavian arteries. Mild narrowing within the bilateral mid to distal common carotid arteries due to the calcified and noncalcified atherosclerotic plaque. Moderate left and mild right carotid bifurcation calcification. No significant stenosis or occlusion within the right internal carotid artery. There is mild stenosis of approximately 40% at the proximal left internal carotid artery. Biapical patchy densities favor scarring. A 3 mm subpleural nodule within the right lower lobe on image 1. No pneumothorax. 4 mm nodule within the left lung apex on image 74. There is also a 3 mm nodule within the left lung apex on image 74. Multiple subcentimeter thyroid nodules. There is also a dominant 1.3 cm nodule within the left thyroid lobe. Poststernotomy changes. Degenerative changes within the cervical spine. IMPRESSION: 1. No significant stenosis, occlusion, or aneurysm within the [place]. 2. Overall, diminished perfusion within the left vertebral artery in comparison to the right. This is likely due to the high-grade stenosis at the proximal left subclavian artery as well as at the moderate to severe stenosis at the origin of the left vertebral artery. 3. Mild multifocal narrowing within the carotid and vertebral arteries as desc ribed above. No arterial occlusion or dissection identified. Electronically signed by: Hitesh Nathan M.D. 09/01/2019 6:15 PM ECG Data Attestation: I personally reviewed and interpreted this ECG as follows: Indication: + weakness Rate (beats per minute): 76 Rhythm: + sinus rhythm ECG Intervals/blocks: + Left bundle branch block ECG Findings: no PACs and no PVCs Comparison ECG Date: from (05/01/16) Change: the following changes noted Additional Comments: LBBB is new. Blood Pressure Blood Pressure Findings: Elevated blood pressure Blood Pressure Disposition: further management by hospitalist MDM Narrative The patient is an 79-year-old male who presented to the emergency department for an evaluation of left-sided weakness. The patient appears to be having an acute stroke. He was made a stroke alert prior to arrival after notification by the prehospital personnel. It appears the patient may been having some symptoms over the last few days. He did have a doctor's appointment at 9 AM on the morning of presentation. Apparently he walked into this appointment under his own power. Given his previous history and his appearance on evaluation I did discuss his case with the tele stroke neurologist. The patient was not a candidate for TPA as his symptoms have been waxing and waning over the last 2 to 3 days. He did not appear to have an abnormality on angiography which was amenable to interventional therapy. I discussed the patient's laboratory and radiographic studies with him and his family members. I discussed his case with the on-call [facility] hospitalist group. They have agreed to evaluate the patient in the emergency department for further management disposition. Likely patient will require further work-up as well as some medication changes. Impression & Plan CVA (cerebral vascular accident) Discharge Plan Visit Data *Final* Discharge Date/Time: 09/01/19 20:20 Chief Complaint: Stroke Alert Stated Complaint: LEFT SIDE WEAKNESS ED Provider: Billy Steele Discharge Problem: CVA (cerebral vascular accident) Patient Disposition: Admitted As Inpatient Discharge Instructions Interventions: ED Discharge Assessment Last Done: 09/01/19 20:20 Queries: Stroke Queries Contraindication Not Initiating IV-Tpa: Treatment not indicated Symptom Onset Unknown: Yes Discharge Problem: CVA (cerebral vascular accident) Qualifiers: CVA mechanism: unspecified Qualified Code(s): I63.9 - Cerebral infarction, unspecified The scribe's documentation has been prepared under my direction and personally reviewed by me in its entirety. I confirm that the note above accurately refle cts all work, treatment, procedures, and medical decision making performed by me.
[2019-09-01] MEDS ORDERED: CARBOHYDRATES FOR HYPOGLYCEMIA PO PRN (21:05)
[2019-09-01] MEDS ORDERED: NITROGLYCERIN SL 0.4 MG/TAB TAB SL PRN (21:05)
[2019-09-01] MEDS ORDERED: GLUCOSE 10 TABS/TUBE PO PRN (21:05)
[2019-09-01] MEDS ORDERED: DEXTROSE 50% 50 ML SYRINGE IV PRN (21:05)
[2019-09-01] MEDS ORDERED: GLUCOSE 40% GEL 15 GM TUBE PO PRN (21:05)
[2019-09-01] MEDS ORDERED: GLUCAGON FOR INJ 1 MG VIAL SQ PRN (21:05)
[2019-09-01] MEDS ORDERED: ACETAMINOPHEN 325 MG TAB PO PRN (21:05)
[2019-09-01] MEDS ORDERED: PHARMACIST DISCHARGE MED REC CONSULT PRN (21:05)
[2019-09-01] MEDS: ENOXAPARIN INJ 40 MG/0.4 ML SYR SQ SCH (21:58)
[2019-09-01] MEDS: CLOPIDOGREL BISULFATE 75 MG TAB PO SCH (21:58)
[2019-09-01] MEDS: carvediloL 3.125 MG TAB PO SCH (21:59)
[2019-09-01] MEDS: INSULIN ASPART 100 UNITS/ML 3 ML PEN SC SCH (22:16)
[2019-09-01 22:44] LABS: Appearance Urine Clear (Clear); Bilirubin Urine Negative (Negative); Blood Urine Negative (Negative); Color Urine Yellow; Glucose Urine UA Negative (Negative); Ketones Urine Negative (Negative); Leukocyte Esterase Urine Negative (Negative); Nitrite Urine Negative (Negative); Protein Urine Negative (Negative); Specific Gravity Urine > 1.045 (1.000-1.030); Urobilinogen Urine Negative (Negative); pH Urine 6.5 (4.5-7.5)
--- NOTE | 2019-09-01 23:11 | Magnetic Resonance Report ---
MRI OF THE BRAIN WITHOUT CONTRAST CLINICAL HISTORY: Stroke. Left sided facial numbness. Left arm numbness. COMPARISON STUDY: MRI of the brain May 06, 2016. Head CT and CTA of the head performed earlier tomicah alves. TECHNIQUE: Utilizing a 1.5 Annabelle magnet and dedicated coil, multiplanar, multiecho imaging of the bra in was performed without IV contrast. FINDINGS: There are multiple small foci of restricted diffusion consistent with acute infarcts within the posterior right frontal lobe as well as the right parietal lobe. There may be punctate acute inf arct within the right occipital lobe. There is no mass effect or hemorrhage. Ventricular system is un remarkable. The basilar cisterns are patent. There are no extra-axial collections. No intracranial ma sses are identified on this unenhanced exam. Moderate atrophy is noted. White matter hypodensity sugg ests small vessel disease. Orbits are unremarkable. There is mild ethmoid sinus mucosal thickening. IMPRESSION: Multiple small acute infarcts within the posterior right frontal lobe and the right terry etal lobe. Possible punctate acute infarct within the right occipital lobe. No mass effect or hemorrh age. Electronically signed by: Constantine Reese M.D. 09/01/2019 11:09 PM
[2019-09-02 06:53] LABS: Basophils # (auto) 0.03 K/uL (0-0.2); Basophils % (auto) 0.4 %; Eosinophils # (auto) 0.28 K/uL (0-0.5); Eosinophils % (auto) 4.1 %; Hematocrit (blood only) 40.1 % (42-52); Hemoglobin 13.3 g/dL (14.0-18.0); Immature Granulocytes # (auto) 0.02 K/uL (0.00-0.02); Immature Granulocytes % (auto) 0.3 %; Lymphocytes # (auto) 2.08 K/uL (1.2-3.4); Lymphocytes % (auto) 30.5 %; Mean Corpuscular Hemoglobin 29.9 pg (25-34); Mean Corpuscular Hgb Conc 33.2 g/dL (32-36); Mean Corpuscular Volume 90.1 fL (80-100); Mean Platelet Volume 9.2 fL (7.4-10.4); Monocytes # (auto) 0.59 K/uL (0.11-0.59); Monocytes % (auto) 8.7 %; Neutrophils # (auto) 3.82 K/uL (1.4-6.5); Platelet Count 223 K/uL (130-400); RDW Coefficient of Variation 13.7 % (11.5-14.5); RDW Standard Deviation 45.4 fL (36.4-46.3); Red Blood Count 4.45 M/uL (4.7-6.1); White Blood Count 6.82 K/uL (4.8-10.8)
[2019-09-02 07:09] LABS: Estimated Average Glucose 154 mg/dl
[2019-09-02 07:28] LABS: BUN Creatinine Ratio 13.7 (10-20); Calcium 8.8 mg/dl (8.5-10.1); Creatinine Clr Calc Pharmacy 55.7 ml/min; Est GFR (African American) 98.1; Est GFR (Non-African American) 84.7; Potassium 4.1 mmol/L (3.5-5.1)
[2019-09-02 07:38] LABS: Thyroid Stimulating Hormone 1.02 uIu/ml (0.300-4.500)
[2019-09-02] MEDS ORDERED: LACTATED RINGER'S 1,000 ML IV SCH (07:45)
[2019-09-02] MEDS ORDERED: ROSUVASTATIN CALCIUM 20 MG TAB PO SCH (09:00)
[2019-09-02] MEDS: carvediloL 3.125 MG TAB PO SCH ×2 (09:00→21:36)
[2019-09-02] MEDS: INSULIN ASPART 100 UNITS/ML 3 ML PEN SC SCH ×4 (09:09→21:42)
[2019-09-02] MEDS: FLUTICASONE PROPIONATE NA SPR 16 GM BTL NAE SCH (09:10)
--- NOTE | 2019-09-02 12:07 | Neurology Consultation ---
Date of Consultation September 02, 2019 Assessment & Plan (1) Embolic stroke involving middle cerebral artery: Mr. Peraza is a pleasant 79 year old male admitted for left facial droop, dysarthria, left sided weakness and numbness which has since improved. ON examine he has mild left upper extremity weakness, dysarthria, and left facial droop. MRI brain reviewed and shows an acue embolic appearing ischemic stroke in the right MCA and SHIPFITTERS SUPERVISOR territories concerning for cardioembolic infarct. TTE was Negative for cardiac source of embolism. CTA head and neck showed no LVO or high grade carotid stenosis. Recommend ASA 81 mg daily and Plavix 75 mg daily for 21 days then Plavix 75 mg daily. Recommend to continue Crestor 20 mg daily. HA1c goal <7. SBP<140, DBP <90. Smoking cessation. Recommend cardiac monitoring as outpatient for paroxysmal Afib evaluation. Follow up [facility] in 8-weeks. 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 Symptoms onset was 2-days ago with slurred speech. However yesterday he noted that his left arm was weak and numb which progressed to involve his leg. The patient did not recieve IV TPA as he was outside the window. CT head non contrast in the ED showed small old right frontal lobe infarct and moderate small vessel disease. CTA head and neck showed no large vessel occlusion. Overall, diminished perfusion within the left vertebral artery in comparison to the right. This is likely due to the high-grade stenosis at the proximal left subclavian artery as well as at the moderate to severe stenosis at the origin of the left vertebral artery. He was admitted due to concern for stroke. Allergies Allergy/AdvReac Type Severity Reaction Status Date / Time amoxicillin AdvReac Unknown GI SYMPTOMS Verified 09/01/19 19:10 clavulanic acid AdvReac Unknown GI SYMPTOMS Verified 09/01/19 19:10 Home Medications Home Medications Medication Instructions Recorded Confirmed Type aspirin [Aspir-81] 81 mg PO DAILY 09/01/19 09/01/19 History carvedilol [Coreg] 3.125 mg PO BID 09/01/19 09/01/19 History cefuroxime axetil 500 mg PO BID 09/01/19 09/01/19 History famotidine [Pepcid] 40 mg PO DAILY 09/01/19 09/01/19 History fluticasone propionate 2 spray INTRANASAL DAILY 09/01/19 09/01/19 History loratadine [Claritin] 10 mg PO DAILY 09/01/19 09/01/19 History nitroglycerin 0.4 mg SUBLINGUAL UD PRN 09/01/19 09/01/19 History omeprazole 20 mg PO DAILY 09/01/19 09/01/19 History oxycodone-acetaminophen [Percocet] 1 tab PO Q6 PRN 09/01/19 09/01/19 History rosuvastatin [Crestor] 20 mg PO DAILY 09/01/19 09/01/19 History Patient History Family History Other Cancer Diabetes Heart disease Hypertension Social History (Updated 09/01/19 @ 19:58 by Sarahi Reynoso PA-C) Preferred Language: Maltese Communication Ability: Effective Community Advocate Required: No Beliefs That Will Affect Care: None Current Living Situation: Spouse Feels Safe at Home: Yes Smoking Status: Current every day smoker Tobacco Type: cigars ; Cigarettes Per Day: 3 ; Do You Dip or Chew Tobacco: No ; Tobacco Cessation Education Requested by Patient: No Hx Alcohol Use: No Hx Substance Use: No Physical Exam Physical Exam: Constitutional: appears chronically ill, thin male Head and Face: normocephalic and atraumatic Eyes: normal lids, normal conjunctiva Neck: supple Respiratory: normal effort Cardiovascular: regular rhythm Abdomen: non distended Skin: no rashes Psychiatric: normal mood and normal affect NEUROLOGIC EXAMINATION: Appearance: no acute distress Orientation: awake, alert and oriented x 3 Mental Status: alert Attention: normal Knowledge: appropriate Language: no aphasia Speech: mild dysarthria Cranial Nerves: CN 2 - no visual defect on confrontation and pupils round, equal, reactive to light CN 3, 4, 6 - extra-ocular movements intact and no nystagmus CN 5 - facial sensation intact CN 7 - mild left facial droop CN 8 - intact hearing CN 9, 10 - palate symmetric CN 11 - good shoulder shrug CN 12 - tongue midline Gait: stable, no ataxia Coordination: no ataxia with finger to nose testing Sensory: intact a light touch Muscle Tone: normal Muscle exam: Let upper extremity 4/5 i interosseous and biceps, legs stength is symmetric Reflexes: No clonus, galaviz Negative Results & Data Vital Signs (Past 12 Hours) Vital Signs Temp Pulse Pulse Resp BP Pulse Ox 09/02/19 11:51 36.5 C 63 16 127/75 96 09/02/19 08:11 80 09/02/19 07:16 36.7 C 78 18 96/62 L 94 09/02/19 03:40 36.6 C 74 17 142/77 H 96 Diagnostic Findings MRI brain performed on 09/01/2019: Multiple small acute infarcts within the posterior right frontal lobe and the right parietal lobe. Possible punctate acute infarct within the right occipital lobe. No mass effect or hemorrhage. CTA head and neck on 09/01/2019: 1. No significant stenosis, occlusion, or aneurysm within the [place]. 2. Overall, diminished perfusion within the left vertebral artery in comparison to the right. This is likely due to the high-grade stenosis at the proximal left subclavian artery as well as at the moderate to severe stenosis at the origin of the left vertebral artery. 3. Mild multifocal narrowing within the carotid and vertebral arteries as described above. No arterial occlusion or dissection identified.
[2019-09-02] MEDS: CLOPIDOGREL BISULFATE 75 MG TAB PO SCH (13:23)
[2019-09-02] MEDS: LORATADINE 10 MG TAB PO SCH (13:24)
[2019-09-02] MEDS: ASPIRIN 81 MG ECTAB PO SCH (13:24)
[2019-09-02] MEDS: PANTOprazole 40 MG TAB PO SCH (13:24)
[2019-09-02] MEDS: FAMOTIDINE 40 MG TABLET PO SCH (13:24)
--- NOTE | 2019-09-02 21:23 | Hospitalist Progress Note ---
Date of Service September 02, 2019 Assessment & Plan (1) Embolic stroke: Presented with left-sided weakness and dysarthria. CT head showed small old right frontal infarct and moderate small vessel disease. CTA head & neck showed high grade stenosis proximal left subclavian artery, multifocal mild narrowings carotid and vertebral arteries. MRI showed acute ischemic strokes in right MCA and SENIOR [employer]ACLE DATABASE ADMINISTRATOR territory. EKG- NSR. Echo- no thrombi, no right to left shunt. Symptoms improved. Seen by PT, OT, PERSONALIZED LIVING ASSISTANT. Seen by Neuro. Antiplatelet therapy with ASA + clopidogrel x 21 days, followed by long-term m onotherapy with clopidogrel. Continue statin. Will need outpatient ZIO patch. (2) CAD (coronary artery disease): No anginal symptoms. Continue antiplatelet drugs, carvedilol, statin. (3) HTN (hypertension): BP low this morning. Continue carvedilol with hold parameters. (4) DM type 2 (diabetes mellitus, type 2): Hgb A1C 7.0. FBS = 116. Insulin coverage as needed. (5) Dyslipidemia: LDL-c 107. Increase rosuvastatin to 40 mg daily. (6) DVT prophylaxis: Receiving enoxaparin. Ambulate. (7) Discharge planning issues: Anticipated discharge to home. Primary care follow-up with [facility] in [place]. Subjective Recheck for stroke. Patient seen in their room around 1650. Better. Left-sided weakness improved. No headache. Review of Systems: Constitutional- no fever. Cardiac- no chest pain. Pulmonary- no cough or SOB. GI- no nausea, vomiting, diarrhea, melena, hematochezia. - no urinary symptoms. Otherwise, as noted above. Physical Exam Constitutional: no acute distress Eyes: + anicteric sclerae Respiratory: no respiratory distress Auscultation: lungs clear to auscultation bilaterally Cardiovascular: Rate/Rhythm: regular rate and regular rhythm Heart Sounds: + murmur (II/ sys murmur base & LSB); no gallop and no cardiac rub Vessels: no JVD Extremities: no calf tenderness and no edema Gastrointestinal (Abdomen): normal bowel sounds, soft, nontender, no hepatosplenomegaly Skin: no rashes, warm and dry Neurologic: left facial palsy mild weakness LUE Psychiatric: Orientation: alert and oriented x 3 Results & Data Vital Signs (Past 12 Hours) Vital Signs Temp Pulse Pulse Resp BP BP Pulse Ox 09/02/19 20:27 36.8 C 68 17 115/72 96 09/02/19 15:53 36.3 C L 70 20 166/89 H 96 09/02/19 15:00 69 09/02/19 11:51 36.5 C 63 16 127/75 96 Laboratory Results 09/02/19 06:27 09/02/19 06:27
[2019-09-02] MEDS: ENOXAPARIN INJ 40 MG/0.4 ML SYR SQ SCH (21:36)
[2019-09-03 08:08] LABS: Basophils # (auto) 0.03 K/uL (0-0.2); Basophils % (auto) 0.5 %; Eosinophils % (auto) 3.7 %; Hematocrit (blood only) 37.8 % (42-52); Hemoglobin 12.5 g/dL (14.0-18.0); Immature Granulocytes # (auto) 0.01 K/uL (0.00-0.02); Immature Granulocytes % (auto) 0.2 %; Lymphocytes # (auto) 1.79 K/uL (1.2-3.4); Lymphocytes % (auto) 32.8 %; Mean Corpuscular Hemoglobin 29.5 pg (25-34); Mean Corpuscular Hgb Conc 33.1 g/dL (32-36); Mean Corpuscular Volume 89.2 fL (80-100); Mean Platelet Volume 8.9 fL (7.4-10.4); Monocytes # (auto) 0.51 K/uL (0.11-0.59); Monocytes % (auto) 9.3 %; Neutrophils # (auto) 2.92 K/uL (1.4-6.5); Neutrophils % (auto) 53.5 %; Platelet Count 202 K/uL (130-400); RDW Coefficient of Variation 13.6 % (11.5-14.5); RDW Standard Deviation 44.6 fL (36.4-46.3); Red Blood Count 4.24 M/uL (4.7-6.1); White Blood Count 5.46 K/uL (4.8-10.8)
[2019-09-03 08:38] LABS: BUN Creatinine Ratio 12.2 (10-20); Calcium 8.8 mg/dl (8.5-10.1); Est GFR (African American) 96.1; Est GFR (Non-African American) 82.9; Potassium 4.2 mmol/L (3.5-5.1)
[2019-09-03] MEDS: FLUTICASONE PROPIONATE NA SPR 16 GM BTL NAE SCH (08:38)
[2019-09-03] MEDS: CLOPIDOGREL BISULFATE 75 MG TAB PO SCH (08:38)
[2019-09-03] MEDS: PANTOprazole 40 MG TAB PO SCH (08:38)
[2019-09-03] MEDS: FAMOTIDINE 40 MG TABLET PO SCH (08:39)
[2019-09-03] MEDS: LORATADINE 10 MG TAB PO SCH (08:39)
[2019-09-03] MEDS: ASPIRIN 81 MG ECTAB PO SCH (08:39)
[2019-09-03] MEDS: carvediloL 3.125 MG TAB PO SCH (08:39)
[2019-09-03] MEDS ORDERED: ROSUVASTATIN CALCIUM 20 MG TAB PO SCH (09:00)
[2019-09-03] MEDS: INSULIN ASPART 100 UNITS/ML 3 ML PEN SC SCH ×2 (09:06→12:06)
--- NOTE | 2019-09-03 13:43 | Hospitalist Progress Note ---
Date of Service September 03, 2019 Assessment & Plan (1) Embolic stroke: Presented with left-sided weakness and dysarthria. CT head showed small old right frontal infarct and moderate small vessel disease. CTA head & neck showed high grade stenosis proximal left subclavian artery, multifocal mild narrowings carotid and vertebral arteries. MRI showed acute ischemic strokes in right MCA and [employer] territory. EKG- NSR. Echo- no thrombi, no right to left shunt. Symptoms improved. Seen by PT, OT, PRODUCTION ROUSTABOUT. No need for rehab services. Seen by Neuro. Antiplatelet therapy with ASA + clopidogrel x 21 days, followed by long-term monotherapy with clopidogrel. LDL-c = 107. Continue statin- increased dose as discussed below. Will need outpatient alarm security or surveillance monitor (e.g., ZIO patch). Stroke instructions given. (2) CAD (coronary artery disease): No anginal symptoms. Continue antiplatelet drugs, carvedilol, statin. (3) HTN (hypertension): Blood pressures fluctuated. Continue carvedilol. (4) DM type 2 (diabetes mellitus, type 2): Diet controlled. Hgb A1C 7.0. FBS = 112 day of discharge. (5) Dyslipidemia: LDL-c 107. Increased rosuvastatin to 40 mg daily. (6) DVT prophylaxis: Received enoxaparin. Ambulating. (7) Discharge planning issues: No need for rehab services. Discharge to home. Primary care follow-up with [facility] in [place]. Subjective Doing well. No headache. Left-sided weakness resolved. No new neuro symptoms. No CP, SOB, nausea, vomiting. Ambulating. Physical Exam Constitutional: no acute distress Eyes: + anicteric sclerae Respiratory: no respiratory distress Auscultation: lungs clear to auscultation bilaterally Cardiovascular: Rate/Rhythm: regular rate and regular rhythm Heart Sounds: + murmur (II/ sys murmur base & LSB); no gallop and no cardiac rub Vessels: no JVD Extremities: no calf tenderness and no edema Gastrointestinal (Abdomen): normal bowel sounds, soft, nontender, no hepatosplenomegaly Skin: no rashes, warm and dry Neurologic: alert PERRL, EOMI mild left facial palsy motor upper and lower extremities 5/5 Psychiatric: Orientation: alert and oriented x 3 Results & Data Vital Signs (Past 12 Hours) Vital Signs Temp Pulse Pulse Resp BP Pulse Ox 12/14/19 11:50 36.6 C 64 18 164/67 H 95 09/03/19 10:46 174/90 H 09/03/19 10:30 64 09/03/19 07:00 36.6 C 60 18 103/68 96 09/03/19 03:52 37 C 68 18 111/74 98
[2019-09-03] MEDS ORDERED: STROKE PATIENT DISCHARGE STA (13:59)
--- NOTE | 2019-09-03 14:25 | Pharmacy Report ---
Pharmacist Stroke Counseling - Date of Service September 03, 2019 - Scope: Pharmacy has been consulted to provide medication discharge counseling for this patient admitted with [ischemic stroke] [hemorrhagic stroke] [transient ischemic attack] as per the Pharmacist Discharge Counseling for Stroke Patients [employer] [facility]. - Medications on Discharge: Home Medications Medication Instructions Recorded Confirmed aspirin [Aspir-81] 81 mg PO DAILY 09/01/19 09/01/19 carvedilol [Coreg] 3.125 mg PO BID 09/01/19 09/01/19 cefuroxime axetil 500 mg PO BID 09/01/19 09/01/19 famotidine [Pepcid] 40 mg PO DAILY 09/01/19 09/01/19 fluticasone propionate 2 spray INTRANASAL DAILY 09/01/19 09/01/19 loratadine [Claritin] 10 mg PO DAILY 09/01/19 09/01/19 nitroglycerin 0.4 mg SUBLINGUAL UD PRN 09/01/19 09/01/19 oxycodone-acetaminophen [Percocet] 1 tab PO Q6 PRN 09/01/19 09/01/19 New Rx's Medication Instructions Recorded clopidogrel 75 mg PO QAM #30 tab 09/03/19 rosuvastatin 40 mg PO DAILY #30 cap 09/03/19 - Action: The above medications, specifically ones for stroke treatment/prophylaxis, have been reviewed in detail with the patient and/or patient call center representative(s) prior to discharge. This includes indication, common adverse reactions, drug interactions, and medication administration. Medication counseling has been employed using the teach-back method to ensure understanding. - Outcome: The patient and/or patient call center representative(s) have demonstrated understanding of the medications. Went up to vocational counselor pt. Pt already discharged. Thank you for allowing pharmacy to be involved in the care of this patient. Please call [phone] or [phone] with any additional questions
--- NOTE | 2019-09-04 08:12 | Discharge Summary ---
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 Pt with hx CVA in past with left sided weakness however reports that resolved shortly after stroke. Reports 2 days ago started with slurring speech however noticed worsening slurred speech yesterday. States yesterday with some left arm weakness however this morning with increased left sided weakness. Reports left arm and hand weakness and numbness sensation. Had difficulty walking today and thinks that had some left leg weakness as well. C/O dizziness today described as spinning and feeling off balance. Noted blurry vision that he reports has improved since ER arrival. Pt with chronic SHAH, worse at night. Denies any increased SHAH. Reports chronic nasal/sinus congestion and uses Flonase and Claritin. Denies any increased nasal congestion or facial pain, fever/chills, cough. reports chronic dysphagia and eats pureed diet. Denies recent choking. Reports chronic nocturia. Denies falls, diaphoresis, N/V/D/C, syncope, neck pain, CP, SOB, orthopnea, palpitations, cough, sore throat, otalgia, rhinorrhea, abdominal pain, extremity edema, rashes, dysuria, hematuria. Principal Diagnosis acute strokes- ischemic embolic strokes right MCA + PARKING REGULATION ENFORCEMENT OFFICER territory Discharge Data Allergies Allergy/AdvReac Type Severity Reaction Status Date / Time amoxicillin AdvReac Unknown GI SYMPTOMS Verified 09/01/19 19:10 clavulanic acid AdvReac Unknown GI SYMPTOMS Verified 09/01/19 19:10 Consultations 09/01/19 18:42 ED Decision to Admit Stat 09/01/19 21:05 Consult Case Management - Discharge Planning Routine 09/02/19 07:00 Consult Neurology Routine Ordered Studies 09/01/19 17:30 CT angio head w con Stat CT angio neck with con Stat CT head/brain wo con Stat 09/01/19 21:05 MR brain wo con Routine Hospital Course (1) Embolic stroke: Presented with left-sided weakness and dysarthria. CT head showed small old right frontal infarct and moderate small vessel disease. CTA head & neck showed high grade stenosis proximal left subclavian artery, mul tifocal mild narrowings carotid and vertebral arteries. MRI showed acute ischemic strokes in right MCA and PARKING REGULATION ENFORCEMENT OFFICER territory. EKG- NSR. Echo- no thrombi, no right to left shunt. Symptoms improved. Seen by PT, OT, KNITTING MACHINE FIXER HEAD. No need for rehab services. Seen by Neuro. Antiplatelet therapy with ASA + clopidogrel x 21 days, followed by long-term monotherapy with clopidogrel. LDL-c = 107. Continue statin- increased dose as discussed below. Will need outpatient testing coordinator (e.g., ZIO patch). Stroke instructions given. (2) CAD (coronary artery disease): No anginal symptoms. Continue antiplatelet drugs, carvedilol, statin. (3) HTN (hypertension): Blood pressures fluctuated. Continue carvedilol. (4) DM type 2 (diabetes mellitus, type 2): Diet controlled. Hgb A1C 7.0. FBS = 112 day of discharge. (5) Dyslipidemia: LDL-c 107. Increased rosuvastatin to 40 mg daily. (6) DVT prophylaxis: Received enoxaparin. Ambulating. (7) Discharge planning issues: No need for rehab services. Discharge to home. Primary care follow-up with [facility] in [place]. Total Time Total Time Spent Total Time Spent (In Minutes): 40 Discharge Plan Discharge Items Patient Disposition: Home - Self-Care Reason For Visit: STROKE Discharge Diagnosis: stroke Condition on Discharge: Good Activity: As commented below Activity Comment: Gradually increase activity. Be careful not to fall. Driving/Machine Use: no driving Non-emergency contact: Primary Care Provider, Hospitalist and Neurologist Call non-emergency contact if: you have any medication questions and your symptoms worsen Diet: Carb Consistent or DM2 and Heart Healthy Addtl Attending Provider Instructions: MEDICATION CHANGES: Continue taking aspirin for 20 more days, then stop. Resume clopidogrel (Plavix) 75 mg daily to help prevent additional strokes in the future. You will take both aspirin and clopidogrel (Plavix) together for next 20 days, then just take clopidogrel (Plavix). Do not take omeprazole (Prilosec). It can interact with clopidogrel (Plavix). It is OK to continue taking famotidine (Pepcid). Your cholesterol level was a little high. Increase dose of rosuvastatin (Crestor) to 40 mg daily. SUMMARY OF TEST RESULTS: CT scan showed an old stroke. MRI scan showed new strokes on the right side of your brain. CT angiograms to look at blood vessels showed mild blockage in the neck and brain vessels, but no severe blockage. Electrocardiogram showed regular heart rhythms. Echocardiogram (ultrasound of heart) did not show any blood clots. LDL cholesterol level was 107. Hemoglobin A1C level was 7.0. PENDING TEST RESULTS: Please ask your primary care provider to arrange for outpatient heart monitor like a ZIO patch. RECOMMENDATIONS FOR FOLLOW-UP: Iman Carrasco PA-C. [facility], [place] Please call for an appointment next week. STROKE INSTRUCTIONS: Who to Call and When: Medical Emergencies: Call 911 immediately if you experience any of the following warning signs and symptoms of Stroke: * Sudden numbness or weakness of the face, arm or leg, especially on one side of the body * Sudden confusion, trouble speaking or understanding * Sudden trouble seeing in one or both eyes * Sudden trouble walking, dizziness, loss of balance or coordination * Sudden severe headache with no cause Do not delay calling 911 if you experience any warning signs or symptoms of a stroke. Delay in seeking medical attention may affect what treatments can be given to you. . OTHER INSTRUCTIONS: Seek medical attention if you have: * temperature above 101 * chest pain or trouble breathing * abdominal pain, nausea, vomiting * diarrhea, dark stools or bloody stools * any unanswered questions or concerns Call 911 if symptoms are severe. Please take good care of yourself. Call if you have any questions or problems. You can reach a [facility] hospitalist on duty at [facility] 24 hours a day by calling [phone]. My cell # is [phone]. Pending Studies at Discharge: No Stand-Alone Forms: My [facility], Smoking Cessation Medications and DC Order Prescriptions: New clopidogrel 75 mg Tablet 75 mg PO QAM Qty: 30 RF: 12 rosuvastatin 40 mg capsule, sprinkle 40 mg PO DAILY Qty: 30 RF: 12 Continued famotidine [Pepcid] 40 mg tablet 40 mg PO DAILY RF: 0 aspirin [Aspir-81] 81 mg Tablet,Delayed Release (Dr/Ec) 81 mg PO DAILY RF: 0 carvedilol [Coreg] 3.125 mg tablet 3.125 mg PO BID RF: 0 oxycodone-acetaminophen [Percocet] 10-325 mg tablet 1 tab PO Q6 PRN (Reason: Pain) RF: 0 nitroglycerin 0.4 mg tablet, sublingual 0.4 mg sublingual UD PRN (Reason: Chest Pain) RF: 0 cefuroxime axetil 500 mg tablet 500 mg PO BID RF: 0 fluticasone propionate 50 mcg/actuation spray,suspension 2 spray INTRANASAL DAILY RF: 0 loratadine [Claritin] 10 mg Tablet 10 mg PO DAILY RF: 0 Discontinued omeprazole 20 mg capsule,delayed release(DR/EC) 20 mg PO DAILY RF: 0 rosuvastatin [Crestor] 20 mg tablet 20 mg PO DAILY RF: 0 Discharge Orders: Discharge Order (Routine); Ordered 09/03/19 Ordered By: Mt Dai Admission Data Admit Date/Time: 09/01/19 19:40 Attending Provider: Mt Dai Admit Provider: William Rahman Primary Care Provider: PCP,NO Other Providers: William Rahman ; Kurt Tello Other Interventions: Discharge Summary Assessment (RN) Last Done: 09/03/19 14:06 DC Date/Time DO NOT enter until pt leaves facility: 09/03/19 14:21
== END 2019-09-03 14:21 | disposition home or self-care (01) | DRG 65 ==
LOC: ED 17:33 → SUATTDRO 19:40 → 2N 19:40